=== PATIENT | female | born 2000 ===

== ENCOUNTER 2019-03-19 11:52 | Emergency (ER) | payer MEDICAID ==
--- NOTE | 2019-03-19 13:30 | UC ---
Complaint Female HPI - HPI Summary HPI Summary: patient has had dysuria for 2 days, has had 5 UTIs this year and resolve after treatment. states that at least twice the urine dip was negative and then she would get a call after culture that there was a UTI - History Of Current Complaint Chief Complaint: UCGU Stated Complaint: UTI Time Seen by Provider: 03/19/19 12:52 Hx Obtained From: Patient Hx Last Menstrual Period: 02/21/19 ?: No Onset/Duration: Gradual Onset Timing: Constant Severity Initially: Mild Severity Currently: Moderate Pain Intensity: 7 Character: Burning Aggravating Factor(s): Urination Alleviating Factor(s): Nothing Associated Signs And Symptoms: Positive: Negative. Negative: Fever, Back Pain, Vaginal Bleeding/Discharge, Nausea Related Hx: Similar Episode/Dx as: - UTI - Allergies/Home Medications Allergies/Adverse Reactions: Allergies Allergy/AdvReac Type Severity Reaction Status Date / Time No Known Allergies Allergy Verified 03/19/19 12:05 Home Medications: Home Medications Dexamethasone [Decadron] 16 mg PO DAILY 03/19/19 [History Confirmed 03/19/19] Norgestimate-Ethinyl Estradiol [Ortho Tri-Cyclen 28 Tablet] 1 each PO DAILY 07/06 [History Confirmed 03/19/19] Propranolol TAB* [Inderal TAB*] 80 mg PO DAILY 03/19/19 [History Confirmed 03/19] Topiramate [Trokendi Xr] 25 mg PO DAILY 03/19/19 [History Confirmed 03/19/19] PMH/Surg Hx/FS Hx/Imm Hx Previously Healthy: Yes GI/ History: Other - UTIs Neurological History: Migraine - Surgical History Surgical History: None - Family History Known Family History: Positive: None - Social History Occupation: Student Lives: With Family Alcohol Use: None Substance Use Type: None Smoking Status (MU): Never Smoked Tobacco Review of Systems All Other Systems Reviewed And Are Negative: Yes Constitutional: Positive: Negative Respiratory: Positive: Negative Cardiovascular: Positive: Negative Genitourinary: Positive: Dysuria, Frequency. Negative: Urgency, Vaginal/Penile Burning, Vaginal/Penile Discharge Psychological: Positive: Negative Is Patient Immunocompromised?: No Physical Exam Triage Information Reviewed: Yes Appearance: Well-Appearing, No Pain Distress, Well-Nourished Vital Signs: Initial Vital Signs Temp 98.7 F 03/19/19 12:09 Pulse 65 03/19/19 12:09 Resp 18 03/19/19 12:09 BP 110/70 03/19/19 12:09 Pulse Ox 99 03/19/19 12:09 Vital Signs Reviewed: Yes Respiratory Exam: Normal Respiratory: Positive: Lungs clear Abdomen Description: Positive: Nontender, No Organomegaly, Soft. Negative: CVA Tenderness (R), CVA Tenderness (L) Pelvic Exam: Positive: Other - declines Neurological Exam: Normal Neurological: Positive: Alert Psychological Exam: Normal Skin Exam: Normal Complaint Female Dx - Differential Dx/Diagnosis Differential Diagnosis/HQI/PQRI: Pelvic Inflammatory Disease, Retained Foreign Body, Sexually Transmitted Disease, Urinary Tract Infection Provider Diagnosis: UTI (urinary tract infection) Discharge ED - Sign-Out/Discharge Documenting (check all that apply): Patient Departure All imaging exams completed and their final reports reviewed: No Studies - Discharge Plan Condition: Good Disposition: HOME Prescriptions: Sulfamethox/Trimethoprim DS* [Bactrim DS 800/160 TAB*] 1 tab PO BID #6 tab Patient Education Materials: Urinary Tract Infection in Women (ED) Referrals: No Primary Care Phys,NOPCP [Primary Care Provider] - Additional Instructions: drink plenty of fluids start bactrim and take as directed follow-up with your primary care provider in 1 week for recheck - Billing Disposition and Condition Condition: GOOD Disposition: Home
== END 2019-03-19 13:39 | disposition home or self-care (01) ==
LOC: UCEAST 11:52
DX: N39.0 Urinary tract infection, site not specified (principal); G43.909 Migraine, unspecified, not intractable, without status migrainosus; Z79.899 Other long term (current) drug therapy
CPT/HCPCS: 81003; 84702; 99202; G0463